=== PATIENT | male | born 1945 | race Caucasian/White ===

== ENCOUNTER 2020-10-04 10:44 | Outpatient (CLI) | payer MEDICARE, OTHER, SELFPAY | END 2020-10-04 10:45 | disposition home or self-care (01) | LOC: ANHCOVIDVC 10:45 | PROVIDERS: PCP Internal Medicine | DX: Z23 Encounter for immunization (principal) | CPT/HCPCS: 0001A; 91300 ==

== ENCOUNTER 2020-10-25 10:42 | Outpatient (CLI) | payer MEDICARE, OTHER, SELFPAY | END 2020-10-25 10:43 | disposition home or self-care (01) | LOC: ANHCOVIDVC 10:42 | PROVIDERS: PCP Internal Medicine | DX: Z23 Encounter for immunization (principal) | CPT/HCPCS: 0002A; 91300 ==

== ENCOUNTER 2021-04-16 00:55 | Day surgery (SDC) | payer MEDICARE, OTHER, SELFPAY ==
[2021-04-03 12:03] VITALS: BMI 25.1
--- NOTE | 2021-04-15 19:11 | PM.HPGS ---
History of Present Illness History of Present Illness Consent: Risks, benefits, and alternatives have been discussed and questions answered. Patient agrees to proceed with procedure. Chief complaint: positive Cologuard Narrative: Vincent Coates is a 75 year old male referred for colon cancer screening . He was found have a positive Cologuard test Review of Systems Review of Systems: All systems reviewed & are unremarkable except as noted in HPI and below PMFSH Past Medical History Medical History A-fib CAD (coronary artery disease) History of blood clots History of heart attack Surgical History Surgical History H/O vasectomy Hx of heart artery stent Family History Family History Father Throat cancer Grandparent Diabetes mellitus Social History Social History Smoking status: Never smoker Second hand tobacco smoke exposure: Yes Alcohol intake: never Substance use: never Substance use type: does not use Gender identity (if verbalized by the patient): Male Spiritual care concerns: No Agree to blood products: Yes Meds Home Medications and Allergies Home Medications Medication Instructions Recorded Confirmed Type rivaroxaban 20 mg tablet 20 mg PO DAILY #90 tablet 06/24/20 04/16/21 Rx simvastatin 20 mg tablet See Rx Instructions .ROUTE 10/14/20 04/16/21 Rx .COMPLEX #90 tablet diltiazem HCl 30 mg tablet See Rx Instructions .ROUTE 10/28/20 04/16/21 Rx .COMPLEX #270 tablet digoxin 125 mcg (0.125 mg) tablet See Rx Instructions .ROUTE 10/30/20 04/16/21 Rx .COMPLEX #90 tablet aspirin 325 mg tablet 325 mg PO DAILY 02/10/21 04/16/21 History ergocalciferol (vitamin D2) 1,250 See Rx Instructions .ROUTE 02/10/21 04/16/21 Rx mcg (50,000 unit) capsule .COMPLEX #13 cap carvedilol phosphate [Coreg CR] 40 mg PO DAILY 04/03/21 04/16/21 History Allergies Allergy/AdvReac Type Severity Reaction Status Date / Time No Known Allergies Allergy Mild Verified 04/16/21 08:11 Exam Resp: Auscultation: clear to auscultation bilaterally Cardio: Rate: regular rate Rhythm: regular rhythm GI: GI Palp: Yes Soft to palpation and No Tenderness to palpation present (GI) Assessment and Plan Assessment and plan (1) Colon cancer screening: Code(s): Z12.11 - Encounter for screening for malignant neoplasm of colon Status: Acute Assessment and Plan: Colonoscopy with possible biopsy or polypectomy or cautery or injection of substances.
--- NOTE | 2021-04-16 07:49 | WPDANESEPPF ---
Anes - Initial Pre Proc Eval Procedure: Operation Date: 04/16/21 09:30 Proposed Procedures p Colonoscopy - Travis Lee MD Date/Time: 04/16/21 07:49 Surgeon: Travis Lee MD Pre Op Diagnosis: positive Cologuard Patient Data Age: 75 Gender: M Height: 1.8 m Weight: 81.8 kg Allergies Allergy/AdvReac Type Severity Reaction Status Date / Time No Known Allergies Allergy Mild Verified 04/16/21 08:11 Home Medications Medication Instructions Recorded Confirmed Type rivaroxaban 20 mg tablet 20 mg PO DAILY #90 tablet 06/24/20 04/16/21 Rx simvastatin 20 mg tablet See Rx Instructions .ROUTE 10/14/20 04/16/21 Rx .COMPLEX #90 tablet diltiazem HCl 30 mg tablet See Rx Instructions .ROUTE 10/28/20 04/16/21 Rx .COMPLEX #270 tablet digoxin 125 mcg (0.125 mg) tablet See Rx Instructions .ROUTE 10/30/20 04/16/21 Rx .COMPLEX #90 tablet aspirin 325 mg tablet 325 mg PO DAILY 02/10/21 04/16/21 History ergocalciferol (vitamin D2) 1,250 See Rx Instructions .ROUTE 02/10/21 04/16/21 Rx mcg (50,000 unit) capsule .COMPLEX #13 cap carvedilol phosphate [Coreg CR] 40 mg PO DAILY 04/03/21 04/16/21 History Patient hx anesthesia problems: none Family hx anesthesia problems: none PMFSH Past Medical History Medical History A-fib CAD (coronary artery disease) History of blood clots History of heart attack Surgical History Surgical History H/O vasectomy Hx of heart artery stent Family History Family History Father Throat cancer Grandparent Diabetes mellitus Social History Social History Smoking status: Never smoker Second hand tobacco smoke exposure: Yes Alcohol intake: never Substance use: never Substance use type: does not use Gender identity (if verbalized by the patient): Male Spiritual care concerns: No Agree to blood products: Yes Anes - Eval Final PreProcedure Day of Procedure 04/16/21 07:49 Patient weight: overweight Heart: regular rate and rhythm Lungs: clear to auscultation and normal air movement Airway: Mallampati scale class II Neurological: alert and oriented Last oral intake: >/= 8 hours ASA classification: III Emergent: no Anesthetic plan: proceed Anesthesia type and monitoring: general GIVS and standard monitoring Informed Consent: The patient's anesthetic plan and its attendant risks and benefits were discussed with the patient/family/POA. Questions were solicited and answers provided to the satisfaction of the patient/family/POA.
[2021-04-16 08:13] VITALS: BP 147/97; PULSE 84; RESP 20; TEMP 35.9; O2SAT 97
[2021-04-16] MEDS: LACTATED RINGERS 1,000 ML 150 ML IV CONT (08:19)
[2021-04-16 09:11] VITALS: BP 102/59; PULSE 87; RESP 18; O2SAT 99
[2021-04-16 09:21] VITALS: BP 105/65; PULSE 77; RESP 16; O2SAT 99
[2021-04-16 09:31] VITALS: BP 125/80; PULSE 74; RESP 22; O2SAT 99
== END 2021-04-16 09:44 | disposition home or self-care (01) ==
PROVIDERS: PCP Family Medicine; Visit Provider Internal Medicine Gastroenterology
PROC: 0DJD8ZZ Inspection of Lower Intestinal Tract, Via Natural or Artificial Opening Endoscopic (ICD-10-PCS; CPT 45378; principal; 2021-04-16 09:30)
DX: Z12.11 Encounter for screening for malignant neoplasm of colon (principal); K64.8 Other hemorrhoids; K57.30 Diverticulosis of large intestine without perforation or abscess without bleeding; R19.5 Other fecal abnormalities; I48.91 Unspecified atrial fibrillation; I25.10 Atherosclerotic heart disease of native coronary artery without angina pectoris; I25.2 Old myocardial infarction; Z86.718 Personal history of other venous thrombosis and embolism; Z95.5 Presence of coronary angioplasty implant and graft; Z79.01 Long term (current) use of anticoagulants; Z79.82 Long term (current) use of aspirin
CPT/HCPCS: G0121; J2704; J7120